=== PATIENT | female | born 1970 | race Caucasian/White ===

== ENCOUNTER → 2018-03-07 14:02 | Outpatient (CLI) | payer BC | END | disposition home or self-care (01) | LOC: D.CT 14:00 | DX: R10.9 Unspecified abdominal pain (principal) ==

== ENCOUNTER → 2018-12-26 16:21 | Outpatient (CLI) | payer BC | END | disposition home or self-care (01) | LOC: D.LABREF 16:21 | PROVIDERS: ATTEND Student in an Organized Health Care Education/Training Program | DX: J02.9 Acute pharyngitis, unspecified (principal) ==